=== PATIENT | female | born 1970 | race Caucasian/White ===

== ENCOUNTER 2020-01-06 15:58 | Observation (INO) | payer BC ==
[2020-01-06 17:25] LABS: Basophils % 0.2 % (0-1.3); Lymphocytes % 4.5 % (15.3-44.8); MPV 8.3 fL (7.6-11.3); RBC Red Blood Cell Count 4.57 M/uL (3.86-4.86)
[2020-01-06] MEDS ORDERED: MORPHINE 2 MG/ML SYR ONE ×2 (17:27→18:29)
[2020-01-06] MEDS ORDERED: NA CHLORIDE 0.9% 1,000 ML ONE (17:28)
[2020-01-06] MEDS ORDERED: ONDANSETRON 4 MG/2 ML VIAL ONE ×2 (17:28→18:54)
[2020-01-06 17:47] LABS: Bilirubin Direct 0.3 mg/dL (0-0.2); Bilirubin Total 1.3 mg/dL (0.2-1.0); Potassium 3.8 mmol/L (3.5-5.1)
--- NOTE | 2020-01-06 17:47 | RAD REPORT ---
EXAM DESCRIPTION: CTAbdomen Pelvis W Contrast - 01/06/2020 5:38 pm CLINICAL HISTORY: Abdominal pain. ABD PAIN COMPARISON: No comparisons TECHNIQUE: Biphasic CT imaging of the abdomen and pelvis was performed with 100 ml non-ionic IV cont rast. All CT scans are performed using dose optimization technique as appropriate and may include automated exposure control or mA/KV adjustment according to patient size. FINDINGS: The lung bases are clear. The liver demonstrates mild fatty infiltration. The spleen, pancreas, adrenal glands and kidneys are within normal limits. No bowel obstruction, free air, free fluid or abscess. The appendix is dilated to 13 mm with surroun ding inflammation compatible with acute appendicitis. No evidence of significant lymphadenopathy. IU D is present in the uterus. Several right adnexal cystic lesions are present which may represent hydr osalpinx. No suspicious bony findings. IMPRESSION: Acute appendicitis.
[2020-01-06 17:54] LABS: Blood Morphology Comment NOT SEEN (NOT SEEN); Platelet Estimate ADEQ
--- NOTE | 2020-01-06 18:09 | ER ---
Nurse's Notes [facility] Name: Leanne Robbins Age: 49 yrs Sex: Female : 1970 Arrival Date: 01/06/2020 Time: 16:02 Bed 14 Private MD: Diagnosis: Acute appendicitis Presentation: 01/05 16:39 Chief complaint: Patient states: generalized abd pain that started yesterday, but em became worse yesterday evening, reports N/V and fever, have fever of 102.8 at 1 pm. Coronavirus screen: Client denies travel out of the [place] in the last 14 days. Ebola Screen: Patient negative for fever greater than or equal to 101.5 degrees Fahrenheit, and additional compatible Ebola Virus Disease symptoms Patient denies exposure to infectious person. Patient denies travel to an Ebola-affected area in the 21 days before illness onset. No symptoms or risks identified at this time. Initial Sepsis Screen: Does the patient meet any 2 criteria? HR > 90 bpm. No. Patient's initial sepsis screen is negative. Does the patient have a suspected source of infection? No. Patient's initial sepsis screen is negative. Risk Assessment: Do you want to hurt yourself or someone else? Patient reports no desire to harm self or others. Onset of symptoms was January 05, 2020. 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 - Social history:: Smoking status: Patient denies any tobacco usage or history of. Vital Signs: 16:39 BP 110 / 78; Pulse 106; Resp 20; Temp 100.6(O); Pulse Ox 100% on R/A; Weight 77.11 kg; em Height 5 ft. 4 in. (162.56 cm); Pain 8/10; 18:15 BP 129 / 73; Pulse 95; Resp 17; ll1 18:21 Temp 99.0; ll1 16:39 Body Mass Index 29.18 (77.11 kg, 162.56 cm) em ED Course: 16:02 Patient arrived in ED. mr 16:42 Triage completed. em 16:42 Arm band placed on. em 16:51 Cyrus Goncalves PA is PHCP. cp 16:51 Lars Sheehan MD is Attending Physician. cp 16:52 Dale Waller, DANIELLE is Primary Nurse. ll1 17:38 CT Abd/Pelvis - IV Contrast Only In Process Unspecified. EDMS 18:08 Edgar Salamanca MD is Hospitalizing Provider. cp 18:18 Urine collected: clean catch specimen, clear, shannon colored. jp3 19:11 XRAY Chest (1 view) In Process Unspecified. EDMS Administered Medications: 17:30 Drug: NS 0.9% 1000 ml Route: IV; Rate: 1 bolus; Site: right antecubital; ll1 17:30 Drug: Zofran (Ondansetron) 4 mg Route: IVP; Site: right antecubital; ll1 17:30 Drug: morphine 2 mg Route: IVP; Site: right antecubital; ll1 18:03 Not Given (Physician Discretion): Rocephin 1 grams IV at calculated rate once; Given cp slow IV push per pharmacy instructions 18:15 Drug: metroNIDAZOLE 500 mg Volume: 100 ml; Route: IVPB; Infused Over: 30 mins; Site: ll1 right antecubital; 18:21 Drug: Mefoxin 1 grams Route: IVPB; Infused Over: 30 mins; Site: right antecubital; ll1 Point of Care Testing: Urine : 18:18 hCG Reading: Negative; Control Reading: Positive; jp3 Outcome: 18:08 Decision to Hospitalize by Provider. cp 18:58 Patient left the ED. hb Signatures: Dispatcher [employer] EDCT Radha SchmidtDaron, RN RN em Cyrus Goncalves PA PA cp Kelsie Wood, DANIELLE RN Jayjay Chow jp3 Dale Waller RN RN 1
--- NOTE | 2020-01-06 18:09 | EDPHYS ---
Physician Documentation [facility] Name: Leanne Robbins Age: 49 yrs Sex: Female : 1970 Arrival Date: 01/06/2020 Time: 16:02 Bed 14 Private MD: ED Physician Lars Sheehan HPI: 01/05 17:05 This 49 yrs old Female presents to ER via Ambulatory with complaints of cp Abdominal Pain, Vomiting/Diarrhea. 17:05 The patient presents with abdominal pain right side of abdomen. Onset: The cp symptoms/episode began/occurred yesterday. The symptoms do not radiate. Associated signs and symptoms: Pertinent positives: nausea and vomiting, anorexia, fever, Pertinent negatives: constipation, diarrhea, vaginal discharge. The symptoms are described as constant. Severity of pain: in the emergency department the pain is unchanged despite home interventions. 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 - Social history:: Smoking status: Patient denies any tobacco usage or history of. ROS: 18:10 Constitutional: Positive for fever. cp 18:10 Eyes: Negative for injury, pain, redness, and discharge. cp 18:10 Respiratory: Negative for cough, shortness of breath, wheezing. Exam: 18:15 Constitutional: The patient appears in no acute distress, alert, awake, non-toxic, well cp developed, well nourished, uncomfortable. 18:15 Head/Face: Normocephalic, atraumatic. cp 18:15 Eyes: Periorbital structures: appear normal, Conjunctiva: normal, no exudate, no injection, Sclera: no appreciated abnormality, Lids and lashes: appear normal, bilaterally. 18:15 ENT: External ear(s): are unremarkable, Nose: is normal, Mouth: Lips: moist, Oral mucosa: pink and intact, moist, Posterior pharynx: is normal, airway is patent, no erythema, no exudate. 18:15 Chest/axilla: Inspection: normal, Palpation: is normal, no crepitus, no tenderness. 18:15 Cardiovascular: Rate: tachycardic, Rhythm: regular. 18:15 Respiratory: the patient does not display signs of respiratory distress, Respirations: normal, no use of accessory muscles, no retractions, labored breathing, is not present, Breath sounds: are clear throughout, no decreased breath sounds. 18:15 Abdomen/GI: Inspection: abdomen appears normal, Bowel sounds: active, all quadrants, Palpation: soft, in all quadrants, moderate abdominal tenderness, in the umbilical area and right lower quadrant, rebound tenderness, is not appreciated, voluntary guarding, is elicited in the right lower quadrant. 18:15 Back: pain, is absent, ROM is normal. Vital Signs: 16:39 BP 110 / 78; Pulse 106; Resp 20; Temp 100.6(O); Pulse Ox 100% on R/A; Weight 77.11 kg; em Height 5 ft. 4 in. (162.56 cm); Pain 8/10; 18:15 BP 129 / 73; Pulse 95; Resp 17; ll1 18:21 Temp 99.0; ll1 16:39 Body Mass Index 29.18 (77.11 kg, 162.56 cm) em MDM: 16:53 Patient medically screened. cp 17:00 Differential diagnosis: appendicitis, cholecystitis, Cholelithiasis, pancreatitis, cp Pyelonephritis, Ureterolithiasis, urinary tract infection. 18:05 Data reviewed: vital signs, nurses notes, lab test result(s), radiologic studies, CT cp scan, I have discussed the patient's presentation/case with the attending Emergency Department Physician; and as a result, I will admit patient. 18:05 Response to treatment: VSS. Pain and nausea improved, fever resolved. Physician cp consultation: Edgar Salamanca MD was contacted at 18:05, regarding admission, to the operating room, patient's condition, and will see patient in OR, would like medications started, Mefoxin and Metronidazole. 01/05 16:59 Order name: Basic Metabolic Panel; Complete Time: 17:52 cp 01/05 17:52 Interpretation: Normal except: GLUC 119; GFR 66. cp 01/05 16:59 Order name: CBC with Diff; Complete Time: 18:01 cp 01/05 18:02 Interpretation: Normal except: WBC 23.2; SLIM% 88.8; LYM% 4.5; NEUT A 20.6; MNA 1.5. 01/05 16:59 Order name: Hepatic Function; Complete Time: 17:52 01/05 16:59 Order name: Lipase; Complete Time: 17:52 01/05 16:59 Order name: Urine Microscopic Only 01/05 17:54 Order name: Manual Differential; Complete Time: 18:01 EDMS 01/05 16:59 Order name: CT Abd/Pelvis - IV Contrast Only; Complete Time: 17:52 01/05 17:52 Interpretation: Report reviewed. 01/05 18:48 Order name: PT-INR 01/05 18:48 Order name: Ptt, Activated 01/05 18:48 Order name: XRAY Chest (1 view) 01/05 16:59 Order name: IV Saline Lock; Complete Time: 17:30 01/05 16:59 Order name: Labs collected and sent; Complete Time: 18:19 01/05 16:59 Order name: Urine Dipstick-Ancillary (obtain specimen); Complete Time: 18:20 01/05 16:59 Order name: Urine Test (obtain specimen); Complete Time: 18:19 01/05 17:54 Order name: NPO; Complete Time: 18:01 01/05 18:48 Order name: EKG; Complete Time: 18:49 01/05 18:48 Order name: EKG - Nurse/Tech cp Administered Medications: 17:30 Drug: NS 0.9% 1000 ml Route: IV; Rate: 1 bolus; Site: right antecubital; ll1 17:30 Drug: Zofran (Ondansetron) 4 mg Route: IVP; Site: right antecubital; ll1 17:30 Drug: morphine 2 mg Route: IVP; Site: right antecubital; ll1 18:03 Not Given (Physician Discretion): Rocephin 1 grams IV at calculated rate once; Given cp slow IV push per pharmacy instructions 18:15 Drug: metroNIDAZOLE 500 mg Volume: 100 ml; Route: IVPB; Infused Over: 30 mins; Site: ll1 right antecubital; 18:21 Drug: Mefoxin 1 grams Route: IVPB; Infused Over: 30 mins; Site: right antecubital; ll1 Point of Care Testing: Urine : 18:18 hCG Reading: Negative; Control Reading: Positive; jp3 Disposition: 01/06/20 18:08 Hospitalization ordered by Edgar Salamanca for Observation. Preliminary diagnosis is Acute appendicitis. - Bed requested for Operating Room. - Status is Observation. hb - Condition is Stable. - Problem is new. - Symptoms have improved. Addendum: 01/08/2020 07:17 Co-signature as Attending Physician, Lars Sheehan MD. r n Signatures: Dispatcher [employer] Daron Amin, RN RN em Lars Sheehan MD MD rn Page, Corey, PA PA cp Kelsie Wood RN RN hb Lewis, Lynsay RN RN ll1 Corrections: (The following items were deleted from the chart) 01/05 18:02 17:52 Normal except: WBC 23.2; SLIM% 88.8; LYM% 4.5. cp cp 18:58 18:08 Hospitalization Ordered by Edgar Salamanca MD for Observation. Preliminary diagnosis hb is Acute appendicitis. Bed requested for Operating Room. Status is Observation. Condition is Stable. Problem is new. Symptoms have improved. cp
[2020-01-06] MEDS ORDERED: METRONIDAZOLE 500mg IVPB 500 MG/100 ML BAG IV ONE (18:15)
[2020-01-06] MEDS ORDERED: CEFTRIAXONE/SWI 1gm 0 GM/0 ML SYR ONE (18:15)
[2020-01-06] MEDS ORDERED: CEFOXITIN/SWI 1gm 1 GM/10 ML SYR ONE ×2 (18:29→23:32)
[2020-01-06] MEDS ORDERED: MIDAZOLAM HCL 2 MG/2 ML INJ ONE (18:52)
[2020-01-06] MEDS ORDERED: FENTANYL CITR 100 MCG/2 ML ONE (18:52)
[2020-01-06] MEDS ORDERED: GLYCOPYRROLATE 0.2 MG/ML SYR ONE (18:52)
[2020-01-06] MEDS ORDERED: LIDOCAINE 1% MPF 5 ML VIAL ONE (18:52)
[2020-01-06] MEDS ORDERED: propofoL 200 MG/20 ML VIAL IV ONE (18:52)
[2020-01-06] MEDS ORDERED: NEOSTIGMINE 1 MG/ML -5 ML ONE (18:53)
[2020-01-06] MEDS ORDERED: dexAMETHasone 4 MG/ML VIAL ONE (18:53)
[2020-01-06] MEDS ORDERED: ROCURONIUM 50 MG/5 ML VIAL IV ONE (18:54)
[2020-01-06] MEDS ORDERED: KETOROLAC 30 MG/ML INJ ONE (18:54)
[2020-01-06 19:11] LABS: Urine Blood TRACE (NEG); Urine Glucose NEGATIVE (NEG); Urine Protein NEGATIVE (NEG); Urine Specific Gravity <1.005 (1.005-1.030)
[2020-01-06 19:13] LABS: Urine Specific Gravity <1.005 (1.005-1.030)
[2020-01-06] MEDS ORDERED: Ringers Lactate 1,000 ML IV ONE (19:13)
[2020-01-06] MEDS ORDERED: NA CIT/CITRIC AC 30 ML ORAL UDC ONE (19:13)
--- NOTE | 2020-01-06 19:19 | RAD REPORT ---
EXAM DESCRIPTION: RAD - Chest Single View - 01/06/2020 7:12 pm CLINICAL HISTORY: pre-op Chest pain. COMPARISON: No comparisons FINDINGS: Portable technique limits examination quality. The lungs are grossly clear. The heart is normal in size. No displaced fractures. IMPRESSION: No acute intrathoracic process suspected.
[2020-01-06 19:22] LABS: Urine Bacteria <20 /HPF (<20); Urine Culture Reflex Order NOT NEEDED; Urine RBC <5 /HPF (NONE SEEN)
[2020-01-06] MEDS ORDERED: ONDANSETRON 4 MG/2 ML VIAL IV PRN ×2 (19:28→20:20)
[2020-01-06] MEDS ORDERED: ACETAMINOPHEN 500 MG TAB PO PRN (19:28)
--- NOTE | 2020-01-06 20:07 | P.OP ---
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
[2020-01-06] MEDS ORDERED: HYDROMORPHONE HCL 1 MG/ML INJ IV PRN (20:20)
[2020-01-06] MEDS ORDERED: HYDROCODONE/APAP 7.5/325 MG TAB PO PRN (20:20)
--- NOTE | 2020-01-06 20:52 | OP ---
Date of Procedure: 01/06/2020 Surgeon: Edgar Salamanca MD Printing Bindery Assistant: PUJA Barker Preoperative Diagnosis: Acute appendicitis. Postoperative Diagnosis: Acute suppurative appendicitis. Estimated Blood Loss: Minimal. Specimens: Appendix. Findings: As above. Anesthesia: General. Complications: None. Disposition: The patient tolerated the procedure in stable condition, taken to Recovery in good gene ral condition. Description Of Procedure: The patient was brought to the OR and placed in the supine position. Gene ral anesthesia was begun. The patient was prepped and draped in usual sterile fashion. Marcaine 0.5 % was infiltrated locally. A 15-blade was used to make a 1 cm infraumbilical midline incision. Subc utaneous tissue was divided. Fascia identified and divided. #1 Vicryl stay suture was placed. Dolly toneal cavity was entered with blunt dissection. A 12-mm trocar was placed into the peritoneal cavit y under direct vision. Pneumoperitoneum was established. Then, two 5-mm trocars were placed, 1 in t he suprapubic region and 1 in the left lower quadrant. Laparoscopy revealed normal tube, right ovari an cyst, normal uterus, left ovarian tube normal, small bowel normal, liver and gallbladder normal, p eritoneal surface normal, acute suppurative appendicitis in the right lower quadrant freed from the s urrounding tissues and then base of the appendix on the cecum clearly identified. Appendix appear so mewhat necrotic and then medial appendix, base of the appendix on the cecum divided with Endo-RIC sta pling device and then appendix retrieved through the umbilicus via an EndoCatch bag and the right low er quadrant. Pelvis thoroughly irrigated. Effluent was clear. No evidence of bleeding or bile leak age appreciated. Subsequently, all trocars removed under direct vision. Stay sutures were tied to e ach other across the fascial defect. Subcutaneous wounds were irrigated. Bleeding was controlled wi th cautery. 3-0 chromic was used to approximate subcutaneous tissue and close the skin. Sterile genny ssing was applied. The patient was awakened and taken to Recovery in good general condition. /MODL Voice ID: [id number] Report ID: [id number]
--- NOTE | 2020-01-06 20:55 | PREOPHP ---
Date of Admission: 01/06/2020 Chief Complaint: Abdominal pain. History Of Present Illness: The patient is a 49-year-old female, who comes in with 1-day history of diffuse abdominal pain localizing to the right lower quadrant, associated with nausea, vomiting, loos e bowel movement. No constipation. No blood in her stool. No dysuria or hematuria. No sore throat , runny nose, cough, headaches, or dizziness. No chest pain. The highest temperature was 102.6, it was the earlier this afternoon. Review of Systems: Otherwise unremarkable. The patient never had this pain before. Past Medical History: Negative. Past Surgical History: Negative. Allergies: NO ALLERGIES. Social History: She denies smoking. Drinks occasionally. Family History: Significant for Alzheimer's. Physical Examination: Vital Signs: Stable. She is currently afebrile. General: She is awake, alert, and oriented x3. Head and Neck: Cranial nerves 2 through 12 are grossly within normal limits. Throat clear. Neck is supple. Chest: Clear. Heart: S1, S2. Abdomen: Soft. Positive Rovsing sign. Positive right lower quadrant tenderness with rebound. No r igidity or guarding. Extremities: Adequately perfused. Nontender. Neurologic: Nonfocal. Diagnostic Data: White count is 23,000 with a left shift. CT of the abdomen and pelvis shows acute appendicitis, questionable dilatation of the tube, may be some hydrosalpinx, no perforation, no absce ss, no other evidence of disease. Assessment: Acute appendicitis. Plan: Admit n.p.o., IV fluid, IV antibiotic, to the OR for laparoscopic appendectomy, possible open. The patient and family understands the risks, benefits, and alternatives, and agrees to procedure. EDI/MODL Voice ID: [id number]
[2020-01-06] MEDS: D5 0.45 NS 1,000 ML IV SCH (21:32)
[2020-01-06] MEDS: CEFOXITIN 1 GM/10 ML SYR IV SCH (23:26)
[2020-01-06] MEDS: METRONIDAZOLE 500mg IVPB 500 MG/100 ML BAG IV SCH (23:26)
[2020-01-06] MEDS ORDERED: CEFOXITIN SODIUM 1 GM/VIAL ONE (23:32)
[2020-01-06 23:51] VITALS: BMI 29.2
[2020-01-07 04:45] LABS: Absolute Lymphocytes (CBC) 0.8 K/uL (0.7-4.9); Basophils % 0.2 % (0-1.3); Hematocrit 35.2 % (36.0-45.0); Lymphocytes % 4.1 % (15.3-44.8); MPV 8.2 fL (7.6-11.3); RBC Red Blood Cell Count 3.94 M/uL (3.86-4.86)
[2020-01-07 05:01] LABS: Magnesium 2.2 mg/dL (1.8-2.4); Phosphorus 1.6 mg/dL (2.5-4.9); Potassium 4.3 mmol/L (3.5-5.1)
[2020-01-07] MEDS: D5 0.45 NS 1,000 ML IV SCH ×2 (05:50→12:00)
[2020-01-07] MEDS: METRONIDAZOLE 500mg IVPB 500 MG/100 ML BAG IV SCH ×3 (05:51→17:34)
[2020-01-07] MEDS: CEFOXITIN 1 GM/10 ML SYR IV SCH (05:51)
[2020-01-07] MEDS: POTASS/SODIUM PHOSPHATE 1 PKT POWD.PACK PO SCH ×3 (08:49→10:55)
--- NOTE | 2020-01-07 09:31 | PN ---
Date of Progress Note: 01/06/2020 Subjective: The patient is awake, alert, tolerating liquids. Objective: Vital Signs: Stable. Afebrile. Abdomen: Benign. Laboratory Data: White count is 19,000. Assessment: Status post laparoscopic appendectomy for acute suppurative appendicitis. Plan: Continue IV antibiotics for another 24 hours. Recheck the white count; if it is trending towa rds normal, then we will consider discharge tomorrow. Advance diet as tolerated. Encourage ambulati on and incentive spirometry. DVT prophylaxis. /MODL Voice ID: [id number] Report ID: [id number]
[2020-01-07] MEDS: CEFOXITIN/SWI 1gm 1 GM/10 ML SYR IV SCH ×2 (11:51→17:34)
[2020-01-07] MEDS ORDERED: D5 0.45 NS 1,000 ML IV SCH (13:24)
[2020-01-08] MEDS: CEFOXITIN/SWI 1gm 1 GM/10 ML SYR IV SCH ×3 (00:28→11:44)
[2020-01-08] MEDS: METRONIDAZOLE 500mg IVPB 500 MG/100 ML BAG IV SCH ×3 (00:28→11:44)
[2020-01-08 04:30] LABS: Absolute Lymphocytes (CBC) 2.1 K/uL (0.7-4.9); Basophils % 0.2 % (0-1.3); Hematocrit 33.5 % (36.0-45.0); Lymphocytes % 16.2 % (15.3-44.8); MPV 8.5 fL (7.6-11.3)
[2020-01-08 04:41] LABS: Phosphorus 2.6 mg/dL (2.5-4.9); Potassium 4.2 mmol/L (3.5-5.1)
[2020-01-08 09:58] VITALS: BP 122/67; TEMP 97.2
--- NOTE | 2020-01-08 10:32 | DS ---
Date of Discharge: 01/08/2020 Admitting Diagnosis: Acute appendicitis. Discharge Diagnosis: Acute suppurative appendicitis. Procedure Performed: Laparoscopic appendectomy. Hospital Course: The patient is a 49-year-old female, who underwent the aforementioned procedure. P ostoperatively, she had leukocytosis and pain that required parenteral pain management. Today, she i s ambulating, pain controlled p.o. pain medication, and afebrile, tolerating diet. Therefore, the jina harkins will be discharged home. Disposition: Home. Condition: Stable. Discharge Instructions: Resume home medications and diet. Activity as tolerated. No heavy lifting. Remove dressing. Shower. Keep wound clean and dry. Follow up in my office in one week. Call for appointment. Cipro 500 mg p.o. q.12, Flagyl 500 mg p.o. q.8, Tylenol No. 3 one tablet p.o. q.4 p.r. n. pain. /ANTIONETTE Voice ID: [id number] Report ID: [id number]
[2020-01-08 11:00] VITALS: O2SAT 98
== END 2020-01-08 14:03 | disposition home or self-care (01) ==
LOC: ER 15:58 → 2ND 19:26
PROVIDERS: ADMIT Surgery; ATTEND Surgery
PROC: 0DTJ4ZZ Resection of Appendix, Percutaneous Endoscopic Approach (ICD-10-PCS; principal; 2020-01-06 19:00)
DX: K35.80 Unspecified acute appendicitis (principal); D72.829 Elevated white blood cell count, unspecified
CPT/HCPCS: 85025 ×3; 80048 ×3; 36415 ×2; 83735; 81025; 84100 ×2; 82565; 80076; 88304; 83690; 74177; 71045; 94010 ×2; 96375; 96374; 99284; 44970; Q9967; J2704; J2250; J3010; J2270 ×2; J1170; J2710; J7799 ×2; J7120; J7030; J0694; J2405 ×2; G0378 ×4; 81003; 81015; J0696